=== PATIENT | female | born 1950 | race Caucasian/White ===

== ENCOUNTER → 2024-04-03 16:03 | Outpatient (REF) | payer MEDICARE, BC, SELFPAY | LOC: RAD 16:03 | PROVIDERS: ATTENDING PHYSICIAN Obstetrics & Gynecology Gynecology; FAMILY PHYSICIAN Family Medicine | DX: N85.00 Endometrial hyperplasia, unspecified (principal) | CPT/HCPCS: 76830; 76856 ==

== ENCOUNTER → 2024-05-19 10:16 | Outpatient (REF) | payer MEDICARE, BC, SELFPAY | LOC: WDC 10:16 | PROVIDERS: ATTENDING PHYSICIAN Obstetrics & Gynecology Gynecology; FAMILY PHYSICIAN Family Medicine | DX: Z12.31 Encounter for screening mammogram for malignant neoplasm of breast (principal) | CPT/HCPCS: 77063; 77067 ==

== ENCOUNTER → 2024-12-07 08:32 | Outpatient (REF) | payer MEDICARE, BC, SELFPAY | LOC: CLAB 08:32 | PROVIDERS: ATTENDING PHYSICIAN Nurse Practitioner | DX: N39.0 Urinary tract infection, site not specified (principal) | CPT/HCPCS: 87086 ==

== ENCOUNTER → 2025-05-24 13:14 | Outpatient (REF) | payer MEDICARE, BC, SELFPAY | LOC: RAD 13:14 | PROVIDERS: ATTENDING PHYSICIAN Obstetrics & Gynecology Gynecology; FAMILY PHYSICIAN Family Medicine | DX: Z78.0 Asymptomatic menopausal state (principal) | CPT/HCPCS: 77080 ==

== ENCOUNTER → 2025-05-29 09:17 | Outpatient (REF) | payer MEDICARE, BC, SELFPAY | LOC: RAD 09:17 | PROVIDERS: ATTENDING PHYSICIAN Family Medicine; FAMILY PHYSICIAN Family Medicine | DX: M25.562 Pain in left knee (principal) | CPT/HCPCS: 73564 ==

== ENCOUNTER → 2025-06-12 14:59 | Outpatient (REF) | payer MEDICARE, BC, SELFPAY | LOC: WDC 14:59 | PROVIDERS: ATTENDING PHYSICIAN Obstetrics & Gynecology Gynecology; FAMILY PHYSICIAN Family Medicine | DX: Z12.31 Encounter for screening mammogram for malignant neoplasm of breast (principal) | CPT/HCPCS: 77063; 77067 ==

== ENCOUNTER → 2025-09-02 14:31 | Outpatient (REF) | payer MEDICARE, BC, SELFPAY | LOC: PAVMRI 14:31 | PROVIDERS: ATTENDING PHYSICIAN Family Medicine | DX: M25.562 Pain in left knee (principal) | CPT/HCPCS: 73721 ==